=== PATIENT | female | born 1960 | race Caucasian/White ===

== ENCOUNTER → 2019-03-13 10:21 | Day surgery (SDC) | payer MEDICARE, MEDICAID ==
[~2019-03-13 10:21] MED LIST: Benzocaine/Butamben/Tetracain (CETACAINE - SINGLE USE) 5 gm TOPICAL ONE; Buffered Lidocaine 1% SYRIN* 1 ML/SYRINGE INTRADERM ONE; Dexamethasone IV* 4 MG/ML 1 ML (4 MG) IV SLOW PU ONE; Dexamethasone IV* 4 MG/ML 1 ML (4 MG) ONE; DiMENhydriNATE IV* 50 MG/ML VIAL IV PUSH PRN; Famotidine IV* 10 MG/ML 2 ML (20 mg) IV ONE; Famotidine IV* 10 MG/ML 2 ML (20 mg) ONE; HYDROcodone/ACETAMIN 5-325 MG* 1 TAB PO PRN; Lactated Ringers 1000 ML Bag* 1,000 ML IV SCH; Lidocaine 2% PF * 5 ML VIAL ONE; Midazolam* 1 MG/ML 5 ML VIAL (5 MG) ONE; Naloxone* 0.4 MG/ML 1 ML VIAL IV PRN; Ondansetron INJ* 2 MG/ML VIAL ONE; Propofol* 10 MG/ML 20 ML BTL ONE; Succinylcholine* 20 MG/ML 10 ML VIAL ONE; fentaNYL* 50 MCG/ML 2 ML VIAL (100 MCG VIAL) IV PRN; fentaNYL* 50 MCG/ML 2 ML VIAL (100 MCG VIAL) ONE; oxyCODONE/Acetamin 5/325 MG* TAB PO PRN
--- NOTE | 2019-03-13 15:32 | PRO ---
BRONCHOSCOPY REPORT: DATE OF PROCEDURE: 03/13/19 PROCEDURE PERFORMED: Bronchoscopy with endobronchial ultrasound-guided fine needle aspiration of mediastinal nodes. PREPROCEDURAL DIAGNOSIS: Lymphadenopathy. ANESTHESIA: General anesthesia. ANESTHESIOLOGIST: Dr. Strauss. DESCRIPTION OF PROCEDURE: Informed consent was obtained from the patient prior to the procedure after all the risks and benefits were thoroughly explained. Appropriate time-out performed and agreed on by attending staff prior to the procedure. A flexible Olympus bronchoscope was inserted through ET tube for airway evaluation. ET tube positioning was confirmed to be 3 cm above the level of the marleny. Bronchoscope was then advanced into the left bronchial tree, which was inspected. No secretions were noted. All airways were patent. Bronchoscope was then advanced into the right bronchial tree, which was inspected. Thin secretions were noted, which were suctioned. No endobronchial lesions were noted. Bronchoscope was then withdrawn and EBUS bronchoscope was inserted. L4 lymph node was enlarged and was accessed with 3 passes. Rapid onsite evaluation revealed lymphatic tissue with no malignant cells. Station 7 was then accessed with 2 passes. Rapid onsite evaluation revealed lymphatic tissue with no malignant cells. Station R4 was then accessed with 2 passes. Rapid onsite evaluation revealed granulomas. No malignant cells were noted. Rest of the specimen was placed in [employer]to[employer] for flow cytometric testing. Sample was also sent for microbiological cultures. The patient tolerated the procedure well. The patient was extubated and seen in recovery in optimal condition. [id number]/CPS #: [id number] [facility]
[2019-03-13 16:07] VITALS: BP 160/108
== END | disposition home or self-care (01) ==
LOC: OR 10:21
PROVIDERS: ATTEND Internal Medicine
DX: R59.0 Localized enlarged lymph nodes (principal); F41.8 Other specified anxiety disorders; G47.33 Obstructive sleep apnea (adult) (pediatric); R07.9 Chest pain, unspecified
CPT/HCPCS: 87070; 87102; 87116; 87205; 87206; 88172; 88173; 88184; 88187; 88188; 88189; 88305; J0330; J1100; J2250; J2405; J2704; J3010